=== PATIENT | female | born 1970 | race African-American/Black ===

== ENCOUNTER 2023-07-28 11:26 | Emergency (ER) | payer MEDICAID, OTHER ==
[~2023-07-28] VITALS: Ht 167.6 cm; Wt 84.0 kg
[~2023-07-28 11:26] MED LIST: ALPR2TAB2 PO; AM100 PO; AMLO5TAB4 PO; BENA40TA66 PO; CLIN-194 PO; GABA300C PO; IBUP-1008 PO; IBUP-2030 PO; NAPR-681 PO; SERT100T PO; XANAX PO
[2023-07-28 11:32] VITALS: BP 165/100; PULSE 91; RESP 18; TEMP 98.2; O2SAT 95
[2023-07-28] MEDS ORDERED: LORAZEPAM 0.5MG TABLET PO ONE (13:15)
[2023-07-28 13:25] LABS: BASOPHILS % 0.6 % (0.0-2.0); EOSINOPHILS % 1.6 % (0.0-5.0); HEMATOCRIT. 37.3 % (36.0-48.0); HEMOGLOBIN. 12.6 g/dL (12.0-16.0); LYMPHOCYTES % 14.3 % (20.0-50.0); MEAN CORPUSCULAR HEMOGLOBIN 30.3 pg (28.0-32.0); MEAN CORPUSCULAR HGB CONC 33.9 g/dL (31.0-37.0); MEAN CORPUSCULAR VOLUME 89.4 fL (81.0-99.0); MEAN PLATELET VOLUME 7.3 fl (7.4-10.4); MONOCYTES % 5.6 % (2.0-8.0); NEUTROPHILS % 77.9 % (40.0-76.0); PLATELET 329 x1000/uL (130-400); RED BLOOD CELL COUNT 4.17 mill/uL (4.2-5.4); RED CELL DISTRIBUTION WIDTH 13.9 % (11.6-14.6); WHITE BLOOD COUNT 8.1 x1000/uL (4.5-11.0)
[2023-07-28 13:53] LABS: CHLORIDE 106 mEq/L (98-107); INDEX HEMOLYSI 1 (1-3); INDEX ICTERIC 1 (1-4); INDEX LIPEMIC 1 (1-3); POTASSIUM 4.3 mEq/L (3.5-5.1); SODIUM 139 mEq/L (136-145)
[2023-07-28 14:02] LABS: ACETAMINOPHEN 4 ug/mL (10-30); ALANINE AMINOTRANSFERASE 21 IU/L (13-61); ALBUMIN 4.1 g/dL (3.4-5.0); ASPARTATE AMINOTRANSFERASE 19 IU/L (15-37); BILIRUBIN TOTAL 0.4 mg/dL (0.1-1.0); CALCIUM 9.1 mg/dL (8.5-10.1); CARBON DIOXIDE 29 mEq/L (21-32); CREATININE 0.8 mg/dL (0.6-1.3); ETHANOL BLOOD < 10 mg/dL (<10); GLUCOSE 112 mg/dL (70-105); PROTEIN TOTAL 8.3 g/dL (6.0-8.3); UREA NITROGEN BLOOD 16 mg/dL (7-21)
[2023-07-28 14:29] LABS: HCG SCREEN INDETERMINATE
== END 2023-07-28 16:27 | disposition home or self-care (01) ==
LOC: ER 11:26
DX: F41.9 Anxiety disorder, unspecified (principal); F12.10 Cannabis abuse, uncomplicated; I10 Essential (primary) hypertension; Z88.1 Allergy status to other antibiotic agents; Z79.899 Other long term (current) drug therapy; Z86.39 Personal history of other endocrine, nutritional and metabolic disease; Z98.890 Other specified postprocedural states; Z98.51 Tubal ligation status
CPT/HCPCS: 36415; 80053; 80307; 80320; 80329; 84702; 84703; 85025; 99283; G0480

== ENCOUNTER 2023-11-28 15:38 | Emergency (ER) | payer MEDICAID, OTHER ==
[~2023-11-28] VITALS: Ht 165.1 cm; Wt 78.0 kg
[2023-11-28 15:39] VITALS: O2SAT 97
[2023-11-28] MEDS ORDERED: NAPR-1176 MT (17:14)
[2023-11-28] MEDS ORDERED: HYDR-4001 MT (17:14)
[2023-11-28] MEDS: HYDROCODONE/ACETAMINOPHEN 5/325MG TABLET PO ONE (17:38)
[2023-11-28] MEDS: SILVER SULFADIAZINE 1% CREAM 25GM TOP ONE (18:01)
[2023-11-28] MEDS: KETOROLAC 15MG/ML VIAL IV ONE (18:01)
[2023-11-28 18:02] VITALS: BP 158/94; PULSE 60; RESP 15; TEMP 98.8
== END 2023-11-28 18:04 | disposition home or self-care (01) ==
LOC: ER 15:38
DX: T25.212A Burn of second degree of left ankle, initial encounter (principal); F41.9 Anxiety disorder, unspecified; J45.909 Unspecified asthma, uncomplicated; F32.A Depression, unspecified; I10 Essential (primary) hypertension; F12.90 Cannabis use, unspecified, uncomplicated; Z98.51 Tubal ligation status; Z88.8 Allergy status to other drugs, medicaments and biological substances; X58.XXXA Exposure to other specified factors, initial encounter; Y93.89 Activity, other specified; Y92.89 Other specified places as the place of occurrence of the external cause; Y99.8 Other external cause status
CPT/HCPCS: 16000; 99283; Z7610 ×3

== ENCOUNTER 2024-01-10 11:57 | Emergency (ER) | payer MEDICAID ==
[~2024-01-10] VITALS: Ht 162.6 cm; Wt 80.8 kg
[~2024-01-10 11:57] MED LIST changes: +HYDR-4001 MT; +NAPR-1176 MT
[2024-01-10 12:22] VITALS: BP 168/93; PULSE 62; RESP 16; TEMP 97.6; O2SAT 98
[2024-01-10 12:38] LABS: BASOPHILS % 0.7 % (0.0-2.0); EOSINOPHILS % 10.1 % (0.0-5.0); HEMATOCRIT. 37.4 % (36.0-48.0); HEMOGLOBIN. 12.7 g/dL (12.0-16.0); LYMPHOCYTES % 33.8 % (20.0-50.0); MEAN CORPUSCULAR HEMOGLOBIN 30.7 pg (28.0-32.0); MEAN CORPUSCULAR HGB CONC 33.8 g/dL (31.0-37.0); MEAN CORPUSCULAR VOLUME 90.8 fL (81.0-99.0); MEAN PLATELET VOLUME 7.6 fl (7.4-10.4); MONOCYTES % 7.3 % (2.0-8.0); NEUTROPHILS % 48.1 % (40.0-76.0); PLATELET 301 x1000/uL (130-400); RED BLOOD CELL COUNT 4.12 mill/uL (4.2-5.4); RED CELL DISTRIBUTION WIDTH 14.3 % (11.6-14.6); WHITE BLOOD COUNT 5.6 x1000/uL (4.5-11.0)
[2024-01-10 12:49] LABS: PROTHROMBIN TIME 10.9 sec (9.6-11.0)
[2024-01-10 13:02] LABS: ALANINE AMINOTRANSFERASE 12 IU/L (10-49); ALBUMIN 4.3 g/dL (3.2-4.8); ASPARTATE AMINOTRANSFERASE 20 IU/L (<34); BILIRUBIN TOTAL 0.4 mg/dL (0.1-1.0); CALCIUM 9.1 mg/dL (8.7-10.4); CARBON DIOXIDE 29 mEq/L (21-32); CHLORIDE 106 mEq/L (98-107); CREATININE 0.8 mg/dL (0.6-1.0); GLUCOSE 111 mg/dL (70-105); POTASSIUM 3.8 mEq/L (3.5-5.1); PROTEIN TOTAL 7.2 g/dL (6.0-8.3); SODIUM 140 mEq/L (136-145); UREA NITROGEN BLOOD 13 mg/dL (9-23)
[2024-01-10 13:04] LABS: TROPONIN I HIGH SENSITIVITY < 4 ng/L (3.0-34)
[2024-01-10] MEDS: PREDNISONE 20MG TABLET PO ONE (15:37)
[2024-01-10] MEDS ORDERED: SERT100T MT (15:46)
[2024-01-10] MEDS ORDERED: ALBU2.5V13 NEB (15:46)
[2024-01-10] MEDS ORDERED: P20 MT (15:46)
== END 2024-01-10 16:19 | disposition home or self-care (01) ==
LOC: ER 12:04
DX: J45.901 Unspecified asthma with (acute) exacerbation (principal); F12.10 Cannabis abuse, uncomplicated; I10 Essential (primary) hypertension; Z86.39 Personal history of other endocrine, nutritional and metabolic disease; Z88.1 Allergy status to other antibiotic agents; Z79.899 Other long term (current) drug therapy; Z98.890 Other specified postprocedural states; Z98.51 Tubal ligation status
CPT/HCPCS: 99285; 71045; 80053; 81025; 83880; 85025; 85610; 85730; 84484; 36415; 93005; J7512

== ENCOUNTER 2024-07-24 12:36 | Emergency (ER) | payer MEDICAID, OTHER ==
[~2024-07-24] VITALS: Ht 162.6 cm; Wt 78.9 kg
[~2024-07-24 12:36] MED LIST changes: +ALBU2.5V13 NEB; +P20 MT; +SERT100T MT
[2024-07-24 12:39] VITALS: O2SAT 98
[2024-07-24] MEDS: KETOROLAC 30MG/ML VIAL IM ONE (13:44)
[2024-07-24] MEDS ORDERED: CYCL5TAB MT (14:12)
[2024-07-24 14:39] VITALS: BP 116/78; PULSE 60; RESP 16; TEMP 36.83628; O2SAT 98
== END 2024-07-24 14:44 | disposition home or self-care (01) ==
LOC: ER 12:48
DX: M54.2 Cervicalgia (principal); J45.909 Unspecified asthma, uncomplicated; I10 Essential (primary) hypertension; F41.9 Anxiety disorder, unspecified; F32.A Depression, unspecified; Z88.1 Allergy status to other antibiotic agents; Z98.51 Tubal ligation status; Z79.899 Other long term (current) drug therapy
CPT/HCPCS: 99283; 96372; J1885